=== PATIENT | male | born 1945 | race Caucasian/White ===

== ENCOUNTER 2021-12-05 11:18 | Outpatient (CLI) | payer MEDICARE, OTHER | END 2021-12-05 11:19 | disposition home or self-care (01) | LOC: CSHRAD 11:18 | PROVIDERS: ATTEND Urology | DX: N40.1 Benign prostatic hyperplasia with lower urinary tract symptoms (principal) | CPT/HCPCS: 71046 ==

== ENCOUNTER 2022-11-02 08:33 | Outpatient (CLI) | payer MEDICARE, OTHER | END 2022-11-02 08:34 | disposition home or self-care (01) | LOC: CSHRAD 08:33 | PROVIDERS: ATTEND Family Medicine | DX: C64.1 Malignant neoplasm of right kidney, except renal pelvis (principal) | CPT/HCPCS: 36415; 71046; 80053; 80061; 83036; 85025 ==